=== PATIENT | female | born 1985 | race Caucasian/White ===

== ENCOUNTER 2021-03-26 13:12 | Emergency (ER) | payer MEDICAID ==
[~2021-03-26] VITALS: Ht 165.1 cm; Wt 90.9 kg
[2021-03-26 14:35] LABS: BASO # 0.04 (0.02-0.10); EOS # 0.56 (0.04-0.40); EOS % 8.7 % (1.0-5.0); HEMATOCRIT 40.2 % (37.0-47.0); HEMOGLOBIN 12.2 g/dL (12.5-16.0); LYMPH# 2.23 (1.50-4.00); MEAN CELL VOLUME 87 fl (78-100); MEAN CORPUSCULAR HEMOGLOBIN 26 pg (27-31); MEAN CORPUSCULAR HGB CONC 30 g/dL (33-37); MEAN PLATELET VOLUME 8.6 fl (7.4-10.4); MONO # 0.32 (0.20-0.80); NEU # 3.27 (1.40-6.50); PLATELET COUNT 364 K/mm3 (130-400); RED BLOOD COUNT 4.62 M/mm3 (4.10-5.30); RED CELL DISTRIBUTION WIDTH 14.3 % (11.5-14.5); WHITE BLOOD COUNT 6.4 K/mm3 (4.8-10.8)
[2021-03-26 14:43] LABS: ALBUMIN 4.2 g/dL (3.5-5.0); POTASSIUM 4.1 mmol/L (3.5-5.1); SODIUM 140 mmol/L (136-145)
[2021-03-26 14:44] LABS: CALCIUM 9.5 mg/dL (8.3-10.5)
[2021-03-26 14:45] LABS: GLUCOSE 79 mg/dL (65-105); TOTAL PROTEIN 7.5 g/dL (6.4-8.3)
[2021-03-26 14:46] LABS: CARBON DIOXIDE 21 mmol/L (22-29)
[2021-03-26 14:47] LABS: TOTAL BILIRUBIN 0.4 mg/dL (0.2-1.2)
[2021-03-26 14:51] LABS: AST-SGOT 20 U/L (5-34)
[2021-03-26 14:52] LABS: ALT/SGPT 16 U/L (0-55)
[2021-03-26 14:59] LABS: TROPONIN-I < 0.03 ng/mL (<0.030)
[2021-03-26 16:03] VITALS: BP 108/67
== END 2021-03-26 15:47 | disposition home or self-care (01) ==
LOC: ED 13:12
PROVIDERS: Nurse Practitioner
DX: R07.89 Other chest pain (principal); Z20.822 Contact with and (suspected) exposure to COVID-19
CPT/HCPCS: J1885

== ENCOUNTER → 2022-03-01 | Outpatient (CLI) | payer MEDICAID | LOC: LAB 12:03 | DX: N39.0 Urinary tract infection, site not specified (principal) ==